=== PATIENT | male | born 1985 | race Caucasian/White ===

== ENCOUNTER → 2017-07-07 | Outpatient (CLI) | payer OTHER ==
[~2017-07-07] MED LIST: DOXYCYCLINE 10100 M1 PO; ZANTAC 150MG T150 M1
== END ==
LOC: M.ULTRA 09:39
DX: N50.3 Cyst of epididymis (principal)

== ENCOUNTER 2017-11-01 04:06 | Emergency (ER) | payer OTHER ==
[~2017-11-01] VITALS: Ht 180.3 cm; Wt 79.4 kg
[~2017-11-01 04:06] MED LIST changes: -ZANTAC 150MG T150 M1
[2017-11-01] MEDS ORDERED: ZANTAC 150MG T150 M1 (04:17)
[2017-11-01 05:03] LABS: ABSOLUTE BASOPHILS 0.1 thou/uL (0.0-0.2); ABSOLUTE EOSINOPHILS 0.3 thou/uL (0.0-0.7); ABSOLUTE LYMPHOCYTES 2.8 thou/uL (0.8-5.3); ABSOLUTE MONOCYTES 0.6 thou/uL (0.0-1.2); ABSOLUTE NEUTROPHILS 3.2 thou/uL (1.6-8.1); EOSINOPHILS 3.8 %; HEMATOCRIT 43.5 % (42.0-52.0); HEMOGLOBIN 14.9 gm/dL (14.0-18.0); LYMPHOCYTES 40.6 %; MCH 30.1 pg (26.0-34.0); MCHC 34.3 g/dL (28.0-37.0); MCV 87.6 fL (80.0-100.0); MONOCYTES 8.4 %; MPV 7.5 fl. (7.2-11.1); NUCLEATED RBCS 0 /100WBC; PLATELET COUNT* 285 thou/uL (150-400); POLYS 46.2 %; RBC 4.96 mil/uL (4.50-6.00); RDW-CV 12.8 % (10.5-14.5); WBC 6.9 thou/uL (4.0-11.0)
[2017-11-01 05:10] LABS: ANION GAP 9 mmol/L (7-16); BUN 11 mg/dL (7-18); CALCIUM 8.3 mg/dL (8.5-10.1); CHLORIDE 104 mmol/L (98-107); CO2 26 mmol/L (21-32); GLUCOSE 100 mg/dL (70-99); POTASSIUM 3.8 mmol/L (3.5-5.1); SODIUM 139 mmol/L (136-145)
[2017-11-01 05:16] LABS: ALBUMIN 3.7 g/dL (3.4-5.0); ALKALINE PHOSPHATASE 75 U/L (46-116); MAGNESIUM 2.1 mg/dL (1.8-2.4); SGOT 19 U/L (15-37); SGPT 39 U/L (30-65); TOTAL BILIRUBIN 0.3 mg/dL (<0.1-1.0); TOTAL PROTEIN 7.1 g/dL (6.4-8.2); TROPONIN-I LEVEL <0.06 ng/mL (<0.06)
[2017-11-01 06:42] VITALS: BP 118/82
--- NOTE | 2017-11-01 14:25 | EKG ---
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 : 1985 Requested By: Jesus Marie Order Number: [id number] MD: René De La Garza Measurements Intervals [place] Rate: 78 P: 51 W[place]: 144 QRS: 12 QRSD: 101 T: -7 QT: 374 QTc: 426 Interpretive Statements Sinus rhythm RSR' in V1 or V2, right VCD or RVH Borderline T abnormalities, inferior leads No previous ECG available for comparison Electronically Signed On 11-01-2017 14:24:50 CDT by René De La Garza [email or web address] <ELECTRONICALLY SIGNED> By: René De La Garza MD, [facility] 11/01/17 1424 0412 0412 René De La Garza MD, [facility] /EPI
--- NOTE | 2017-11-01 14:26 | EKG ---
[place] [address] ELECTROCARDIOGRAM REPORT Name: RADHA FLORESCHAISABELLA FULLER Room: [facility]#: [id number] Admission: 11/01/17 Attend Phys: Discharge: 11/01/17 Date of : 85 Report #: [id number] THIS REPORT FOR: //name// 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
== END 2017-11-01 06:45 | disposition home or self-care (01) ==
LOC: M.ERS 04:06
PROVIDERS: Emergency Medicine Emergency Medical Services
DX: I48.91 Unspecified atrial fibrillation (principal); K21.9 Gastro-esophageal reflux disease without esophagitis